=== PATIENT | male | born 1975 | race Caucasian/White ===

== ENCOUNTER 2023-04-16 07:04 | Outpatient (OUT) | payer OTHER, SELFPAY ==
[2023-04-16 07:41] LABS: Basophils Percent Auto 0.7 % (0.2-2.0); Eosinophils Absolute Auto 0.1 10^3/uL (0.0-0.7); Eosinophils Percent Auto 3.2 % (0.9-7.0); Hemoglobin 14.8 g/dL (14.0-18.0); Immature Granulocytes Abs Auto 0.01 10^3/uL (0.00-0.03); Immature Granulocytes Pct Auto 0.2 % (0.0-0.5); Lymphocytes Absolute Auto 1.6 10^3/uL (1.2-3.8); Lymphocytes Percent Auto 38.1 % (20.5-60.0); Mean Corpuscular HGB Conc 35.2 g/dL (29.9-35.2); Mean Corpuscular Hemoglobin 29.7 pg (25.9-34.0); Mean Corpuscular Volume 84.2 fL (80.0-94.0); Mean Platelet Volume 9.1 fL (9.5-13.5); Monocytes Absolute Auto 0.6 10^3/uL (0.3-0.8); Monocytes Percent Auto 14.1 % (1.7-12.0); Neutrophils Absolute Auto 1.8 10^3/uL (1.4-6.5); Neutrophils Percent Auto 43.7 % (43.0-75.0); Platelet Count 194 10^3/uL (150-450); Red Blood Count 4.99 10^6/uL (4.70-6.10); Red Cell Distribution Width 12.2 % (11.0-15.0); White Blood Count 4.1 10^3/uL (4.0-11.0)
[2023-04-16 10:48] LABS: Estimated Average Glucose 100 mg/dL; Glycohemoglobin A1C 5.1 % (4.5-6.2)
[2023-04-16 11:02] LABS: Alanine Aminotransferase 28 U/L (16-63); Albumin Globulin Ratio 1.2; Albumin Level 4.1 g/dL (3.4-5.0); Alkaline Phosphatase 64 U/L (46-116); Anion Gap 11.3; Aspartate Amino Transferase 20 U/L (15-37); BUN Creatinine Ratio 14.8; Bilirubin Total 1.7 mg/dL (0.2-1.0); Calcium 9.1 mg/dL (8.5-10.1); Carbon Dioxide 30.5 mmol/L (21.0-32.0); Chloride 104 mmol/L (98-107); Chol HDL Ratio 3.7; Cholesterol 144 mg/dL (<=200); Estimated GFR (African America >60 (>=60); Estimated GFR (Non-African Ame >60 (>=60); Free T3 2.93 pg/mL (2.18-3.98); Globulin 3.3 g/dL; Glucose 102 mg/dL (74-106); HDL Cholesterol 39 mg/dL (40-60); Potassium 3.8 mmol/L (3.5-5.1); Sodium 142 mmol/L (136-145); Thyroid Stimulating Hormone 2.049 uIU/mL (0.358-3.740); Total Protein 7.4 g/dL (6.4-8.2); Triglycerides 69 mg/dL (<=150); VLDL CHOLESTEROL 13.8 mg/dL
[2023-04-16 12:26] LABS: Prostate Specific Antigen Scrn 0.89 ng/mL (<=4.00)
[2023-04-16 15:22] LABS: Occult Blood Negative
== END 2023-04-16 07:05 ==
LOC: LAB 07:05
PROVIDERS: PCP Family Medicine; Visit Provider Family Medicine
DX: Z12.5 Encounter for screening for malignant neoplasm of prostate (principal)
CPT/HCPCS: 36415; 80053; 80061; 83036; 84436; 84443; 84481; 85025; G0103; G0328

== ENCOUNTER 2023-07-01 10:36 | Outpatient (OUT) | payer OTHER, SELFPAY ==
--- NOTE | 2023-07-01 10:41 | MR_ITS ---
The [address] [address] Patient Name: SUSY KOTHARI MRN: [id number] date: 1975 Sex: M Assigned Patient Location: MRI Current Patient Location: MRI Accession/Order Number: [id number] Exam Date: 07/01/2023 10:52 Report Date: 07/01/2023 12:10 At the request of: LANIE GREGORY Procedure: MR knee RT wo con EXAM: MR knee RT wo con HISTORY: Right Knee Torn Meniscus right knee pain COMPARISON: Right knee MRI 06/04/2021. TECHNIQUE: Multi planar, multisequence MR imaging of the right knee without contrast. Findings: Menisci: There has been mild interval progression in the previously identified complex posterior horn medial meniscal tear extending predominantly to the inferior articular surface and free edge. The lateral meniscus is intact. Cruciate ligaments: The anterior and posterior cruciate ligaments are intact. Collateral ligaments: The medial collateral ligament and lateral collateral complex are intact. Patellofemoral: The extensor mechanism is intact. Trace amount of joint fluid. No significant effusion. Edematous suprapatellar fat pad no significant interval change in the partial thickness cartilage defect involving the patellar apex. Other bones and cartilage: No acute fracture or malalignment. No significant interval change in the previously identified anterior medial femoral condyle osteochondral abnormality. No focal bone marrow edema. Miscellaneous: No Matos's cyst. MR/MR knee RT wo con IMPRESSION: 1. Mild interval progression in the previously identified medial meniscal tear. Otherwise, no other significant interval change when compared to prior study. Electronically authenticated by: DEWAYNE GOODWIN Date: 07/01/2023 12:10
== END 2023-07-01 10:37 | disposition home or self-care (01) ==
LOC: MRI 10:37
PROVIDERS: PCP Family Medicine; Visit Provider Family Medicine
DX: S83.241A Other tear of medial meniscus, current injury, right knee, initial encounter (principal)
CPT/HCPCS: 73721

== ENCOUNTER 2023-07-25 10:44 | Outpatient (OUT) | payer OTHER, SELFPAY ==
--- NOTE | 2023-07-25 10:47 | XR_ITS ---
[address] [address] Patient Name: SUSY KOTHARI MRN: [id number] date: 1975 Sex: M Assigned Patient Location: RAD Current Patient Location: [facility] Accession/Order Number: [id number] Exam Date: 07/25/2023 10:55 Report Date: 07/25/2023 12:16 At the request of: ERUM WYATT Procedure: XR knee RT 4V EXAM: XR knee RT 4V HISTORY: Right Knee Pain M25.561 COMPARISON: None. TECHNIQUE: 4 views FINDINGS: No acute fracture or subluxation. No significant degenerative changes. Unremarkable soft tissues. XR/XR knee RT 4V IMPRESSION: Unremarkable exam. Electronically authenticated by: INDIGO SAMUELS Date: 07/25/2023 12:16
== END 2023-07-25 10:45 | disposition home or self-care (01) ==
LOC: RAD 10:44
PROVIDERS: PCP Family Medicine; Visit Provider Orthopaedic Surgery
DX: M25.561 Pain in right knee (principal)
CPT/HCPCS: 73564

== ENCOUNTER 2023-08-22 08:37 | Outpatient (OUT) | payer OTHER, SELFPAY ==
--- NOTE | 2023-08-22 08:43 | XR_ITS ---
The [address] [address] Patient Name: SUSY KOTHARI MRN: [id number] date: 1975 Sex: M Assigned Patient Location: [facility] Current Patient Location: [facility] Accession/Order Number: [id number] Exam Date: 08/22/2023 08:55 Report Date: 08/22/2023 10:22 At the request of: ERUM WYATT Procedure: XR foot SORAIDA min 3V PROCEDURE: XR foot SORAIDA min 3V DATE: 08/22/2023 7:55 AM CDT COMPARISONS: None CLINICAL INDICATION: Bilateral Foot Pain FINDINGS: There is no evidence of fractures or other acute osseous abnormalities. The right foot shows moderate to marked first metacarpal phalangeal degenerative change. There is pes planus deformity. There is evidence of some minimal right mid foot tarsometatarsal degenerative changes. The left foot shows moderate first metatarsal phalangeal degenerative change. There is also evidence of pes planus deformity. There is evidence of some mild left midfoot tarsal-tarsal degenerative changes. XR/XR foot SORAIDA min 3V IMPRESSION: Findings as discussed above. No acute osseous abnormalities identified. Electronically authenticated by: ROSALEE RENEE Date: 08/22/2023 10:22
== END 2023-08-22 08:38 | disposition home or self-care (01) ==
LOC: RAD 08:37
PROVIDERS: PCP Family Medicine; Visit Provider Orthopaedic Surgery
DX: M79.671 Pain in right foot (principal); M79.672 Pain in left foot
CPT/HCPCS: 73630

== ENCOUNTER 2024-02-21 12:37 | Outpatient (OUT) | payer OTHER, SELFPAY ==
--- NOTE | 2024-02-21 12:44 | ECG_ITS ---
The [facility] Test Date: 2024-02-21 Pat Name: SUSY KOTHARI Department: Room: - Gender: Male Nurse Transplant: : 1975 Requested By: Anuel Davison Order Number: [id number] Reading MD: MIKAYLA MAYA Measurements Intervals [place] Rate: 72 P: 31 VA: 180 QRS: 23 QRSD: 101 T: 31 QT: 378 QTc: 416 Interpretive Statements SINUS RHYTHM POSSIBLE RIGHT VENTRICULAR CONDUCTION DELAY [RSR (QR) IN V1/V2] NONSPECIFIC ST/T-WAVE ABNORMALITY No previous ECG available for comparison Electronically Signed On 02-23-2024 6:51:48 EDT by MIKAYLA MAYA
--- NOTE | 2024-02-21 13:25 | P.GSHP_ITS ---
History of Present Illness History of Present Illness Chief complaint: right medial meniscus tear Narrative: Patient presents for preadmission testing. The patient reports right knee pain. 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 Since that time has had a steroid injection and he has tried several NSAIDs with only partial relief of his symptoms. He states his knee does lock up at times and sometimes feels that it will give way. He denies numbness, tingling, weakness, or any other complaints. Review of Systems ROS Narrative REVIEW OF SYSTEMS: Negative except as stated in HPI, ten or more systems reviewed. Constitutional: No fever , chills, weakness ENT: No sore throat or epistaxis Cardiovascular: No edema, chest pain, palpitations, or activity intolerance Respiratory: No shortness of breath, cough, or wheezing Gastrointestinal: No abdominal pain, constipation, diarrhea, or vomiting Genitourinary: No dysuria or hematuria Neurological: No numbness, tingling, weakness, or headache Psychiatric: No mood changes PFSH PFSH Medical History (Updated 02/21/24 @ 13:05 by Louise Manuel NP) Back pain ?M54.9 - Dorsalgia, unspecified (ICD-10) Bone spur ?M77.9 - Enthesopathy, unspecified (ICD-10) Arthritis ?M19.90 - Unspecified osteoarthritis, unspecified site (ICD-10) Cervical radiculopathy ?M54.12 - Radiculopathy, cervical region (ICD-10) Neck pain ?M54.2 - Cervicalgia (ICD-10) Anxiety ?F41.9 - Anxiety disorder, unspecified (ICD-10) Headache ?R51.9 - Headache, unspecified (ICD-10) COVID-19 ?U07.1 - COVID-19 (ICD-10) 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, unspecified site (ICD-10) Right knee pain ?M25.561 - Pain in right knee (ICD-10) Heartburn ?R12 - Heartburn (ICD-10) Tear of medial meniscus of right knee ?S83.241A - Other tear of medial meniscus, current injury, right knee, initial encounter (ICD-10) Family History (Updated 02/21/24 @ 13:05 by Louise Manuel NP) Other Family history of DVT Family history of diabetes mellitus Family history of heart disease Family history of hypertension Family history of lung cancer Family history of myocardial infarction Family history of prostate cancer Family history of pulmonary embolism Family history of stroke Myelophthisis Social History (Updated 02/21/24 @ 12:57 by Louise Manuel NP) Within the past year, how often did you have a drink containing alcohol: never Score interpretation: A score less than 4 is consistent with normal alcohol consumption. Smoking status: Never smoker Non-prescribed substance use: denies use Previous occupational history: [employer], Electrical Software Engineer, Grounds Supervisor Highest level of school completed/degree received: Associate degree: academic program Meds Home Medications and Allergies Home Medications ?Medication ?Instructions ?Recorded ?Confirmed ?Type Morning Kick Supplement PO 02/21/24 History magnesium 200 mg tablet 200 mg PO DAILY 02/21/24 02/21/24 History meloxicam 15 mg tablet 15 mg PO DAILY 02/21/24 02/21/24 History pantoprazole 40 mg tablet,delayed 40 mg PO QPM 02/21/24 02/21/24 History release turmeric 400 mg capsule mg PO 02/21/24 History Allergies Allergy/AdvReac Type Severity Reaction Status Date / Time No Known Drug Allergies Allergy Verified 02/21/24 12:52 Exam Narrative Exam Narrative: Constitutional: Awake, alert, comfortable, well-appearing, nontoxic, interactive, vital signs as charted Head: Normocephalic, atraumatic Neck: Supple, normal appearance, normal range of motion, no meningeal signs, no lymphadenopathy Respiratory: No respiratory distress, breath sounds clear Cardiovascular: Regular rate and rhythm, strong and regular heart tones Musculoskeletal: Normal gait, no swelling or edema, Mild right medial joint line tenderness with palpation, no joint instability Skin: No rashes or induration, no lesions, only visible skin inspected Neuro: No neurological deficits, normal sensation Psychiatric: Oriented ?3, normal affect Assessment and Plan Assessment and Plan (1) Tear of medial meniscus of right knee: (2) Right knee pain: Plan Right knee arthroscopic partial medial meniscectomy scheduled with Dr. Davison 03/05/2024.
[2024-02-21 13:50] LABS: Basophils Absolute Auto 0.1 10^3/uL (0.0-0.1); Basophils Percent Auto 1.1 % (0.2-2.0); Eosinophils Absolute Auto 0.1 10^3/uL (0.0-0.7); Eosinophils Percent Auto 1.5 % (0.9-7.0); Hematocrit 41.9 % (42.0-54.0); Hemoglobin 14.5 g/dL (14.0-18.0); Immature Granulocytes Abs Auto 0.01 10^3/uL (0.00-0.03); Immature Granulocytes Pct Auto 0.2 % (0.0-0.5); Lymphocytes Absolute Auto 1.4 10^3/uL (1.2-3.8); Lymphocytes Percent Auto 30.7 % (20.5-60.0); Mean Corpuscular HGB Conc 34.6 g/dL (29.9-35.2); Mean Corpuscular Hemoglobin 29.8 pg (25.9-34.0); Mean Platelet Volume 9.5 fL (9.5-13.5); Monocytes Absolute Auto 0.5 10^3/uL (0.3-0.8); Monocytes Percent Auto 10.3 % (1.7-12.0); Neutrophils Absolute Auto 2.6 10^3/uL (1.4-6.5); Neutrophils Percent Auto 56.2 % (43.0-75.0); Platelet Count 238 10^3/uL (150-450); Red Blood Count 4.87 10^6/uL (4.70-6.10); Red Cell Distribution Width 11.9 % (11.0-15.0); White Blood Count 4.7 10^3/uL (4.0-11.0)
[2024-02-21 13:59] LABS: Anion Gap 13.7; BUN Creatinine Ratio 13.2; Calcium 9.3 mg/dL (8.5-10.1); Carbon Dioxide 28.3 mmol/L (21.0-32.0); Chloride 103 mmol/L (98-107); Estimated GFR (African America >60 (>=60); Estimated GFR (Non-African Ame >60 (>=60); Glucose 95 mg/dL (74-106); Sodium 141 mmol/L (136-145)
== END 2024-02-21 12:38 | disposition home or self-care (01) ==
LOC: PST 12:38
PROVIDERS: PCP Family Medicine; Visit Provider Orthopaedic Surgery
DX: Z01.810 Encounter for preprocedural cardiovascular examination (principal); Z01.812 Encounter for preprocedural laboratory examination; Z01.818 Encounter for other preprocedural examination; S83.241D Other tear of medial meniscus, current injury, right knee, subsequent encounter
CPT/HCPCS: 36415; 80048; 85025; 93005; G0463

== ENCOUNTER 2024-03-05 11:54 | Day surgery (SDC) | payer OTHER, SELFPAY ==
[2024-02-21 13:21] VITALS: BP 137/92; PULSE 77; TEMP 36.5; O2SAT 96; BMI 31.5
[2024-03-05] VITALS (9 sets, daily range): BP systolic 128–168; BP diastolic 80–103; PULSE 70–95; TEMP 36.3; O2SAT 96–99; BMI 31.2
[2024-03-05] MEDS: CEFAZOLIN SODIUM/DEXTROSE,ISO 1 GM/50 ML IV.SOLN IV (13:05)
[2024-03-05] MEDS: LACTATED RINGER'S SOLUTION 1,000 ML 50 ML IV (13:05)
[2024-03-05] MEDS: LACTATED RINGER'S SOLUTION 1,000 ML 1000 ML IV (14:04)
[2024-03-05] MEDS: BUPIVACAINE HCL 0.5% PF 50 MG/10 ML VIAL 20 ML INJ (14:21)
[2024-03-05] MEDS: LIDOCAINE HCL 1%-EPINEPHRINE 1:100,000 10 ML MDV INJ (14:21)
--- NOTE | 2024-03-05 14:46 | PM.ORPRC ---
Procedure Note Date of procedure: 03/05/24 Pre-op diagnosis: Right knee medial meniscus tear and chondromalacia Post-op diagnosis: same as pre-op (1. Right knee medial meniscus tear) Procedure: Indications for surgery: The patient has had knee pain consistent with the above diagnosis. Treatment options were discussed as well as risks and benefits and the patient elected to proceed with the above surgery. Operative Procedure: After informed consent was obtained the patient received intravenous antibiotics and was brought to the operating room. The patient was placed in the supine position. General anesthetic was administered. Exam under anesthesia revealed full knee range of motion and no ligamentous instability. The leg was next prepped and draped in the usual sterile fashion. Diagnostic arthroscopy was next performed through the standard anterior portals, medial and lateral to the patellar tendon. Findings included focal grade II chondromalacia superior medial aspect of the patella and a focal 1 x 1 cm area without unstable articular cartilage flaps. Diffuse grade III chondromalacia of the trochlear groove with unstable articular cartilage flaps which were debrided with arthroscopic shaver back to stable edge. In the medial compartment there was a very large plica and enlarged medial fat pad which was debrided with arthroscopic shaver. Hemostasis was achieved with an ablator. Medial meniscus had a large flap tear of the posterior horn of the medial meniscus that was debrided with arthroscopic biters and a shaver back to stable edge. A 70% meniscectomy was performed. Focal grade II chondromalacia with unstable articular cartilage flaps adjacent to the notch which were debrided with arthroscopic shaver back to stable edge. In the notch the ACL and PCL were intact. In the lateral compartment the lateral meniscus was intact as was the articular cartilage of the lateral femoral condyle. Diffuse grade I chondromalacia lateral tibial plateau without unstable articular cartilage flaps. The knee joint was drained of arthroscopy fluid. Portals were closed with observable suture. The joint was infiltrated with 10 mL 1% lidocaine with epinephrine combined with 20 mL 0.5% Marcaine plain. Steri-Strips and sterile dressing were placed. Patient was awakened and brought to the recovery room in stable condition. There were no intraoperative or immediate postoperative complications. Anesthesia: General-LMA Surgeon: Anuel Davison Estimated blood loss (mL): 5 Pathology: none sent Condition: stable Disposition: PACU
--- NOTE | 2024-03-05 14:53 | PC.NURSE ---
extremity elevated and ice applied to site
== END 2024-03-05 16:27 | disposition home or self-care (01) ==
PROVIDERS: PCP Family Medicine; Visit Provider Orthopaedic Surgery
PROC: (CPT 01400; principal; 2024-03-05 13:00)
DX: S83.241A Other tear of medial meniscus, current injury, right knee, initial encounter (principal); M94.261 Chondromalacia, right knee; M19.90 Unspecified osteoarthritis, unspecified site; M54.12 Radiculopathy, cervical region; F41.9 Anxiety disorder, unspecified; Z86.16 Personal history of COVID-19; R12 Heartburn; X58.XXXA Exposure to other specified factors, initial encounter
CPT/HCPCS: 01400; 29881; 36415; J1094; J1170; J2704